=== PATIENT | male | born 1995 | race Caucasian/White ===

== ENCOUNTER 2022-07-29 06:48 | Day surgery (SDC) | payer OTHER ==
[~2022-07-29] VITALS: Ht 180.3 cm; Wt 59.0 kg
--- NOTE | 2022-07-29 06:37 | NUR ---
PT ARRIVED TO [facility] WITH STEADY GAIT ACCOMPAINED BY FAMILY. ALL PERSONAL BELONGS SENT HOME. NO APPARENT DISTRESS NOTED. PT HAS SOME NOTICABLE WITHDRAWL S/S NOTED. VS OBTAINED. DISCUSSED POC AND SAFETY PRECAUTIONS. PT VERBALIZED UNDERSTANDING. CONSENTS OBTAINED. PT CHANGED INTO GOWN, COMPRESSION STOCKINGS, AND NONSKID SOCKS. IV SITE INITIATED. PT NOW RESTING COMFORTABLY IN BED. CALL LIGHT WITHIN REACH. WILL CONTINUE TO MONITOR.
[2022-07-29 07:03] VITALS: BP 154/93
[2022-07-29 07:25] LABS: HEMATOCRIT 46.8 % (39.0-50.0); HEMOGLOBIN 15.5 g/dl (14.0-18.0); IMMATURE GRANULOCYTES 0.2 % (0.0-5.0); MEAN CELL VOLUME 81.7 fL CALC (80.0-100.0); MEAN CORPUSCULAR HGB 27.1 pG CALC (26.0-32.0); MEAN CORPUSCULAR HGB CONC 33.1 g/dL CAL (32.0-36.0); NEUT# 3.32 thou/uL (1.82-7.42); RED BLOOD COUNT 5.73 mill/uL (4.70-6.10); RED CELL DISTRI WIDTH 12.9 % (11.5-15.5)
[2022-07-29 07:34] LABS: ALBUMIN 5.4 g/dL (3.2-5.0); ALKALINE PHOSPHATASE 67 u/l (38-126); ANION GAP 15 (6-22 (CALC)); BILIRUBIN, TOTAL 0.7 mg/dL (0.0-1.4); BUN 12 mg/dL (9-20); BUN/CREATININE RATIO 10 (12-20 (CALC)); CARBON DIOXIDE 30 mmol/l (22-30); CHLORIDE 100 mmol/l (95-108); CREATININE 1.2 mg/dL (0.7-1.3); GFR FOR AFR.AMER. > 60 ML/MIN (>=60 (CALC)); GFR OTHER RACES > 60 ML/MIN (>=60 (CALC)); SGOT/AST 25 u/l (17-59); SODIUM 141 mmol/l (137-146); TOTAL PROTEIN 8.7 g/dL (6.3-8.2)
[2022-07-29 09:01] VITALS: BP 119/77
--- NOTE | 2022-07-29 12:23 | NUR ---
Induction Note Patient to [facility] procedure room. Time out performed at 1223. Patient placed on monitors, Ruby hugger, bilateral wrist restraints applied for ET tube protection. Versed 5mg given IV push at 1224 Tourniquet applied to left arm Lidocaine 100mg given at 1225 IV push followed by Rocoronium 10mg at 1226 IV push and held for 90 seconds. Propofol bolus of 120mg given at 1228 IV push. Succinylcholine 80mg given IV push at 1229. Smooth intubation with 7.5 ETT secured with tape 23 at the lip. Positive CO2. Positive Auscultation for even air exchange bilaterally. Patient placed on ventilator for spontaneous ventilation. Placed on Propofol IV drip at 1230. OG inserted. Positive air on auscultation. Positive gastric content. Stomach washed at this time.
--- NOTE | 2022-07-29 12:37 | NUR ---
OG close note Stomach washed at this time. Naltrexone 50 mg with Clonidine 0.3 mg via OG tube. OG will be clamped for 45 minutes.
--- NOTE | 2022-07-29 13:12 | NUR ---
OG open note OG open at this time. Gastric content draining into drainage bag. OG to drain for 45 minutes. Propofol will be titrated down based on patient.
--- NOTE | 2022-07-29 13:40 | NUR ---
VERBAL ORDERS FROM DR. LOPEZ FOR LABETALOL 10MG IV PUSH FOR BP 140/90 HR 88.
--- NOTE | 2022-07-29 14:23 | NUR ---
OG close note Stomach washed at this time. Naltrexone 50 mg with Clonidine 0.3 mg via OG tube. OG will be clamped for 45 minutes.
--- NOTE | 2022-07-29 14:34 | NUR ---
VERBAL ORDERS FROM DR. LOPEZ FOR LABETALOL 10MG IV PUSH FOR BP 146/94 HR 76.
[2022-07-29] MEDS ORDERED: CLONIDINE0.1 MG PO (15:09)
[2022-07-29] MEDS ORDERED: NALTREXONE50 MG PO (15:09)
[2022-07-29] MEDS ORDERED: KLONOPIN2 MG PO (15:12)
--- NOTE | 2022-07-29 17:12 | NUR ---
OG close note Stomach washed at this time. Valium 10mg with Clonidine 0.2 mg via OG tube. OG will be clamped for 45 minutes.
[2022-07-29 17:17] VITALS: BP 112/64
--- NOTE | 2022-07-29 17:50 | NUR ---
Extubation note Closing medications given Benadryl 50mg IV push, Decadron 10mg IV push,Magnesium 4 grams IV, Zofran 8mg IV push, Octreotide 100mcg SC. Stomach washed out prior to extubation. Suctioned gastric content. OG removed. Patient extubated. Propofol Discontinued. Wrist restraints removed. Ruby hugger Removed. See [facility] Moderate sedate recovery record for further notes and assessment.
--- NOTE | 2022-07-29 18:20 | NUR ---
pt transfered to [facility] room 281. vss. no apparent distress noted. call light within reach. will continue to monitor.
--- NOTE | 2022-07-29 19:00 | NUR ---
PATIENT RESTING IN BED ON LEFT SIDE. NO SIGNS OF DISTRESS. NO SIGNS OF PAIN. PATIENTAPPEARS DROWSY. BED IN LOW POSITION. BED ALARM ACTIVE. IVF REMAIN RUNNING.
[2022-07-29 21:50] VITALS: BP 139/81
--- NOTE | 2022-07-30 00:01 | NUR ---
PATIENT RESTING IN BED ON HIS LEFT SIDE. NO SIGNS OF DISTRESS. NO COMPLAINTS OF PAIN. PATIENT ABLE TO MAKE NEEDS KNOWN. BED REMAINS IN LOW POSITION. BED ALARM ACTIVE.
[2022-07-30 03:25] VITALS: BP 132/77
--- NOTE | 2022-07-30 04:48 | NUR ---
PATIENT RESTING IN BED. ALERT AND ABLE TO MAKE NEEDS KNOWN. RECEIVED ALL 0400 MEDS WITHOUT DIFFICULTY. NO SIGNS OF DISTRESS. NO COMPLAINTS OF PAIN. BED REMAINS IN LOW POSITION. BED ALARM ACTIVE.
[2022-07-30 05:32] LABS: HEMATOCRIT 39.2 % (39.0-50.0); HEMOGLOBIN 13.6 g/dl (14.0-18.0); MEAN CELL VOLUME 79.7 fL CALC (80.0-100.0); MEAN CORPUSCULAR HGB 27.6 pG CALC (26.0-32.0); MEAN CORPUSCULAR HGB CONC 34.7 g/dL CAL (32.0-36.0); NEUT# 6.21 thou/uL (1.82-7.42); RED BLOOD COUNT 4.92 mill/uL (4.70-6.10); RED CELL DISTRI WIDTH 12.9 % (11.5-15.5)
[2022-07-30 05:37] LABS: ALBUMIN 4.9 g/dL (3.2-5.0); ALKALINE PHOSPHATASE 61 u/l (38-126); ANION GAP 14 (6-22 (CALC)); BILIRUBIN, TOTAL 0.6 mg/dL (0.0-1.4); BUN 12 mg/dL (9-20); BUN/CREATININE RATIO 13 (12-20 (CALC)); CARBON DIOXIDE 24 mmol/l (22-30); CHLORIDE 101 mmol/l (95-108); GFR FOR AFR.AMER. > 60 ML/MIN (>=60 (CALC)); GFR OTHER RACES > 60 ML/MIN (>=60 (CALC)); MAGNESIUM 2.2 mg/dL (1.6-2.3); POTASSIUM 4.3 mmol/l (3.5-5.1); SGOT/AST 25 u/l (17-59); SODIUM 136 mmol/l (137-146); TOTAL PROTEIN 7.4 g/dL (6.3-8.2)
--- NOTE | 2022-07-30 06:45 | NUR ---
GOT REPORT FROM HOME RESTORATION SERVICE SUPERVISOR NURSE. PER NURSE PATIENT HAD AN UNEVENTFUL NIGHT AND RESTED WELL. PATIENT IS CURRENTLY ASLEEP IN BED. NO SXS OF DISTRESS. CALL LIGHT CAND BEDSIDE TABLE ARE WITHIN REACH OF PATIENT AND BED ALARM IS TURNED ON.
[2022-07-30 06:49] VITALS: BP 117/59
--- NOTE | 2022-07-30 12:00 | NUR ---
PATIENT IN SLEEPING IN BED. SPOKE TO FAILY MEMBER ON FILE TO GIVE UPDATE. PATIENT HAS NO SXS OF DISTRESS. CALL LIGHT AND BEDSIDE TABLE WITH IN REACH OF PATIENT. BED ALARM IS ON.
--- NOTE | 2022-07-30 16:12 | NUR ---
Discharge instructions given. Patient verbalizes understanding of same. Discharged in stable condition via Wheelchair to Home with family. All belongings sent with pt.
== END 2022-07-30 16:10 | disposition home or self-care (01) | DRG 897 ==
LOC: ANR 06:48 → MS2 06:49 → ANR 08:00
PROVIDERS: ATTEND Anesthesiology
DX: F11.20 Opioid dependence, uncomplicated (principal)
CPT/HCPCS: J2354